=== PATIENT | male | born 1960 | race Caucasian/White ===

== ENCOUNTER → 2018-06-29 | Day surgery (SDC) | payer BC ==
[2018-06-27 09:17] LABS: INR 0.96; PROTHROMBIN TIME 13.7 seconds (11.9-14.5)
[2018-06-27 09:18] LABS: PARTIAL THROMBOPLASTIN TIME 26.2 seconds (23.8-35.5)
[~2018-06-29] MED LIST: BACLOFEN10 MG PO; DIAZEPAM5 MG PO; FENTANYL CITRATE/PF 100MCG/2 ML INJ ONE; GLUCAGON FOR INJ 1 MG VIAL ONE; HYOSCYAMINE SULFATE 0.5 MG/ML INJ ONE; MIDAZOLAM HCL 2 MG/2 ML VIAL ONE; NORTRIPTYLINE H10 MG; PROPOFOL IV EMULSION 10 MG/ML 50 ML VIAL ONE
[2018-06-29 15:15] VITALS: BP 152/97
--- NOTE | 2018-06-29 15:34 | Operative Report ---
DATE OF PROCEDURE: June 29, 2018 REFERRING PHYSICIAN: Dr. Efren Barbosa. PROCEDURE PERFORMED: Colonoscopy and polypectomy. INDICATIONS FOR COLONOSCOPY: Colorectal cancer screening. MEDICATION: Patient was done under MAC. Please see anesthesiologist's note. PROCEDURE: With patient in the lateral decubitus position, a flexible fiberoptic Olympus colonoscope was inserted into the rectum with ease and advanced all the way to the cecum. It was then withdrawn slowly. Mucosa overlying the cecum and ascending colon grossly appeared to be within normal limits. One polyp was hot biopsied from the transverse colon. There were some scattered diverticular disease noted. One polyp was snared from the sigmoid colon. The scope was then retroflexed into the distal rectum and small internal hemorrhoids were noted, none of which was actively bleeding. The scope was then straightened out and was subsequently withdrawn. Patient tolerated the procedure well. IMPRESSION 1. Transverse colon polyp, hot biopsied. 2. Diverticulosis. 3. Sigmoid colon polyp, snared. 4. Internal hemorrhoids, none actively bleeding. PLAN: Follow up histology. Initiate high-fiber low-fat diet. Initiate VSL #3 one 1 p.o. daily. Patient might benefit from a followup colonoscopy in 3 to 5 years. Job#: [id number] VAS cc:DR EFREN BARBOSA
== END | disposition home or self-care (01) ==
LOC: OR 11:00
PROVIDERS: ATTEND Internal Medicine Gastroenterology
DX: K59.00 Constipation, unspecified (principal); D12.5 Benign neoplasm of sigmoid colon; K63.89 Other specified diseases of intestine; K57.30 Diverticulosis of large intestine without perforation or abscess without bleeding; K64.8 Other hemorrhoids; M54.9 Dorsalgia, unspecified; M79.7 Fibromyalgia; R00.1 Bradycardia, unspecified; Z90.5 Acquired absence of kidney; Z01.810 Encounter for preprocedural cardiovascular examination; Z01.812 Encounter for preprocedural laboratory examination
CPT/HCPCS: 36415; 45384; 45385; 85610; 85730; 93005; J1610; J1980; J2250; 45378